=== PATIENT | female | born 1945 | race Caucasian/White ===

== ENCOUNTER 2020-03-12 16:08 | Outpatient (CLI) | payer MEDICARE, SELFPAY ==
--- NOTE | ~2020-03-12 | MM_ITS ---
EXAMINATION: MM screening [facility] BI w vladimir HISTORY: Screening mammogram TECHNIQUE: Craniocaudal and mediolateral oblique 3-D tomosynthesis images were obtained and synthetic 2-D images were generated. CAD analysis was submitted and interpreted. COMPARISON: 02/26/2018, 02/22/2017, 02/09/2016 BREAST PARENCHYMAL COMPOSITION: There are scattered areas of fibroglandular density. FINDINGS: There is no evidence of suspicious mass, calcification, or architectural distortion to sugg est malignancy in either breast. There has been no suspicious interval change. IMPRESSION: 1. No mammographic evidence of malignancy. 2. Recommend routine screening mammography in one year. BI-RADS Category 1: Negative Reviewed, dictated and finalized at location A.
== END 2020-03-12 16:09 | disposition home or self-care (01) ==
PROVIDERS: PCP Family Medicine Adolescent Medicine; Visit Provider Obstetrics & Gynecology
DX: Z12.31 Encounter for screening mammogram for malignant neoplasm of breast (principal)
CPT/HCPCS: 77063; 77067

== ENCOUNTER 2022-05-10 08:34 | Outpatient (CLI) | payer MEDICARE, SELFPAY ==
--- NOTE | ~2022-05-10 | MM_ITS ---
EXAMINATION: MM screening [facility] BI w vladimir HISTORY: Screening mammogram TECHNIQUE: Craniocaudal and mediolateral oblique 3-D tomosynthesis images were obtained and synthetic 2-D images were generated. CAD analysis was submitted and interpreted. COMPARISON: 03/30/2020, 02/26/2018, 02/22/2017 BREAST PARENCHYMAL COMPOSITION: There are scattered areas of fibroglandular density. FINDINGS: There is no suspicious mass, calcification, or architectural distortion to suggest malignan cy in either breast. There has been no suspicious interval change. IMPRESSION: 1. No mammographic evidence of malignancy. 2. Recommend routine screening mammography in one year. BI-RADS Category 1: Negative Reviewed, dictated and finalized at location A.
== END 2022-05-10 08:35 | disposition home or self-care (01) ==
PROVIDERS: PCP Family Medicine Adolescent Medicine; Visit Provider Obstetrics & Gynecology
DX: Z12.31 Encounter for screening mammogram for malignant neoplasm of breast (principal)
CPT/HCPCS: 77063; 77067

== ENCOUNTER 2024-03-29 13:30 | Emergency (ER) | payer MEDICARE, SELFPAY ==
[2024-03-29 13:38] VITALS: BP 128/57; PULSE 70; RESP 16; TEMP 36.6; O2SAT 100
[2024-03-29] MEDS: TETANUS,DIPHTHERIA,AC PERTUSSIS ADULT (0.5 ML) BOOSTRIX IM (14:39)
[2024-03-29] MEDS: LIDOCAINE HCL 1% LOCAL INJ 2 ML AMPUL 4 ML INFILTRATE (14:49)
--- NOTE | 2024-03-29 15:12 | ED.WOUNDLAC ---
HPI - Wound/Laceration General Chief Complaint: Wound/Laceration Stated Complaint: FINGER LACERATION Time Seen by Provider: 03/29/24 14:24 Source: patient and RN notes reviewed Mode of arrival: ambulatory Limitations: no limitations History of Present Illness HPI narrative: Patient presents today with a laceration to her left 2nd finger tip. She sustained a laceration approximately 1 hour prior to arrival on a laser beam cutter while sewing. She is not up-to-date on her tetanus vaccine. She does not take a blood thinner or aspirin. Related Data Home Medications Medication Instructions Recorded Confirmed melatonin 3 mg tablet 3 mg PO QHS 01/10/22 03/29/24 calcium carbonate 600 mg-vitamin 600 cap PO BID 07/26/22 03/29/24 D3 12.5 mcg (500 unit) capsule (Calcium 600 with Vitamin D3) Allergies Allergy/AdvReac Type Severity Reaction Status Date / Time amoxicillin Allergy Unknown HIVES Verified 03/29/24 14:14 clavulanic acid Allergy Unknown HIVES Verified 03/29/24 14:14 Review of Systems Review of Systems: CONSTITUTIONAL: Denies body aches, fever, chills, or sweats. EYES: Denies visual changes, redness, or discharge. ENT: Denies rhinorrhea, congestion, sore throat, or otalgia. CARDIOVASCULAR: Denies chest pain, palpitations, or edema. RESPIRATORY: Denies cough or dyspnea. GASTROINTESTINAL: Denies abdominal pain, nausea, vomiting, or diarrhea. GENITOURINARY: Denies dysuria or hematuria. SKIN: Denies rash, itching. + finger laceration MUSCULOSKELETAL: Denies back pain, joint pain, or myalgia. NEUROLOGIC: Denies headache, numbness, tingling, or weakness. PSYCH: Denies depression or anxiety. [facility] Past Medical History Medical History Arthritis Degenerative arthritis of knee, bilateral Headache Surgical History Surgical History History of tubal ligation Hx of cholecystectomy Family History Family History Father Hypertension Acute myocardial infarction Heart disease Mother Hypertension Heart disease Sibling Parkinsons disease Hypertension Grandparent Alcoholism Hypertension Heart disease Social History Social History Smoking status: Never smoker Second hand tobacco smoke exposure: No Alcohol intake: current Alcohol use details: 2 glasses of wine monthly Substance use: never Substance use type: does not use Lack of Transportation: No Lack of Food: Never True Current Housing: I Have Housing Concerned About Future Housing: No Difficulty Paying Gas/Electric Bills: No Difficulty Paying for Meds: No Currently Unemployed: No Education: High School Diploma/GED Difficulty w/ Childcare or Family Care: No Living arrangements: with family Occupation/Education: retired Gender identity (if verbalized by the patient): Female Sexual Orientation (if Verbalized by the Patient): Straight or Heterosexual Spiritual care concerns: No Agree to blood products: Yes Comments At time of signature, I have reviewed and agree with nursing past medical, surgical, social and family history unless otherwise noted. Please see nursing chart for further information. There is no relevant family history pertinent to the presenting complaint Exam Narrative: GENERAL: Well-appearing, well-nourished, and in no acute distress. HEAD: Normocephalic, atraumatic. EYES: EOMI. No redness or drainage. Conjunctivae normal. ENT: Mucous membranes pink and moist. NECK: Normal AROM. CHEST: No respiratory distress. EXTREMITIES: 1cm partial thickness flap laceration to the fingertip. The laceration extends to the lateral fingernail including a sliver, but into the nailbed at full thickness. This additional portion of laceration measures approximate
== END 2024-03-29 15:18 | disposition home or self-care (01) ==
PROVIDERS: Emergency Provider Nurse Practitioner; PCP Family Medicine Adolescent Medicine
DX: S61.311A Laceration without foreign body of left index finger with damage to nail, initial encounter (principal); W27.8XXA Contact with other nonpowered hand tool, initial encounter; Z23 Encounter for immunization; M17.0 Bilateral primary osteoarthritis of knee
CPT/HCPCS: 12001; 90471; 90715; 99213; G0463

== ENCOUNTER 2024-04-12 12:41 | Outpatient (CLI) | payer MEDICARE, SELFPAY ==
--- NOTE | ~2024-04-12 | US_ITS ---
EXAMINATION: US thyroid DATE: 04/12/2024 13:29 INDICATION: Thyroid nodule. TECHNIQUE: Multiple ultrasound images of the thyroid were obtained. COMPARISON: None. FINDINGS: The right thyroid lobe measures 4.8 x 1.7 x 1.7 cm. The left thyroid lobe measures 4.4 x 1.3 x 1.6 c m. In the right thyroid lobe, there is an 8 mm mixed cystic and solid, hypoechoic, solid nodule with ill-defined smooth margin without echogenic foci (TI-RADS TR3). In the right thyroid lobe, there is a 6 mm mixed solid and cystic, hypoechoic, wider than tall nodule with smooth margin without echogeni c foci (TR3). In the left thyroid lobe, there is a 7 mm solid, hypoechoic, solid nodule with smooth m argin without echogenic foci (TR4). IMPRESSION: 1. Small thyroid nodules, likely not clinically significant. No follow-up is needed. Reviewed, dictated and finalized at location A. IMPRESSION: 1. Small thyroid nodules, likely not clinically significant. No follow-up is ne eded.
== END 2024-04-12 12:42 ==
LOC: MICIMG 12:42
PROVIDERS: PCP Family Medicine Adolescent Medicine; Visit Provider Family Medicine Adolescent Medicine
DX: E04.2 Nontoxic multinodular goiter (principal)
CPT/HCPCS: 76536

== ENCOUNTER 2024-10-17 08:43 | Outpatient (CLI) | payer MEDICARE, SELFPAY ==
--- NOTE | ~2024-10-17 | MM_ITS ---
EXAMINATION: MM screening [facility] BI w vladimir HISTORY: Screening TECHNIQUE: Craniocaudal and mediolateral oblique 3-D tomosynthesis images were obtained and synthetic 2-D images were generated. CAD analysis was submitted and interpreted. COMPARISON: Comparison to multiple prior studies sequentially, with oldest reviewed study dated 12/25. BREAST PARENCHYMAL COMPOSITION: Not dense: There are scattered areas of fibroglandular density. FINDINGS: There is no evidence of suspicious mass, calcification, or architectural distortion to sugg est malignancy in either breast. There has been no suspicious interval change. IMPRESSION: 1. No mammographic evidence of malignancy. 2. Recommend routine screening mammography in one year. BI-RADS Category 1: Negative Reviewed, dictated and finalized at location B. OVOLTAIC TESTING TECHNICIAN
--- OUTSIDE RECORDS SUMMARY | 2024-10-17 08:51 | XMS_ITS | Referral Summary ---
Author Organization [facility] [address] Address [address] [place] [phone] Care Team Providers Care Electrical Project Manager Name Role Phone Skip Cross MD Primary Care Prov ider Nano Granda Unavailable [phone] Encounters Date Type Department Care Team Description 09/05/2024 Documentation [facility] Group Orthopedics and Sports Medicine [address] [place] [address] [place] [phone] Sonia Xiao MA 08/29/2024 2:55 PM JUDICIAL REGISTRAR Ancillary Procedure [facility] Medical [facility] Imaging at [address] [phone] 08/29/2024 3:00 PM JUDICIAL REGISTRAR Office Visit [facility] Medical [facility] Orthopedic and Sports Medicine [address] [place] [phone] Nano Granda PA Aftercare following right knee joint replacement surgery (Primary Dx) 07/23/2024 9:00 AM JUDICIAL REGISTRAR Telemedicine [facility] Orthopedic and Sports Medicine [address] [place] [phone] Nano Granda PA Aftercare following right knee joint replacement surgery (Primary Dx) from Last 3 Months Allergies Active Allergy Reactions Criticality Noted Date Comments Amoxicillin Shortness of breath High 11/28/2023 Clavulanic Acid Shortness of breath High 11/28/2023 Medications propranolol LA (INDERAL LA) 80 mg 24 hr capsule Take 1 capsule (80 mg total) by mouth daily 3 Active melatonin 5 mg tablet Take 1 tablet (5 mg total) by mouth nightly as needed Active calcium carbonate-vitam in D3 (CALTRATE 600 + D) 1500 mg (600 mg elemental) -400 units per tablet Take 1 tablet by mouth daily Active ibuprofen (ADVIL ORAL) Take by mouth as needed Active ascorbic acid (ascorbic acid with edwina hips) 500 mg tablet,chewable Take 2 tablet/chew tab (1,000 mg total) by mouth daily For 30 days then resume 1 tablet per day dosing 4 Active cholecalciferol (VITAMIN D-3) 2000 unit capsule Take 1 capsule (2,000 Units total) by mouth daily 30 capsule 4 Active HYDROcodone-radha taminophen (NORCO) 5-325 mg per tabletIndicatio ns:Pain Take 1-2 tablets by mouth every 4 (four) hours as needed for pain 63 tablet 4 Active ondansetron (ZOFRAN) 4 mg tabletIndicatio ns:Prevention of Post-Operative Nausea and Vomiting Take 1 tablet (4 mg total) by mouth every 6 (six) hours as needed for nausea or vomiting 30 tablet 1 4 Active senna-docusate (PERICOLACE) 8.6-50 mg 1-2 times daily as needed for constipation 60 tablet 1 4 Active aspirin 81 mg enteric coated tabletIndicatio ns:prevention of thrombosis Take 1 tablet (81 mg total) by mouth 2 (two) times a day for 28 days 56 tablet 4 Active Active Problems Problem Noted Date Diagnosed Date Primary osteoarthritis of right knee 06/10/2024 Social History Tobacco Use Types Packs/Day Years Used Date Smoking Tobacco: Never Smokeless Tobacco: Never Tobacco Cessation:Counseling Given: Not Answered AUDIT-C Answer Date Recorded Q1: How often do you have a drink containing alc ohol? 2-4 times a month 07/09/2024 Q2: How many drinks containi ng alcohol do you have on a typical day when you are drinking? 1 or 2 07/09/2024 Q3: How often do you have si x or more drinks on one occasion? Never 07/09/2024 Personal Safety Answer Date Recorded Have you ever been in or are you currently in a harmful physical or emotional relationship or is someone making you feel afraid or unsafe? Denies 07/09/2024 Comments Unknown Sex and Gender Information Value Date Recorded Sex Assigned at Not on file Legal Sex Female 8:12 PM JUDICIAL REGISTRAR Gender Identity Female 06/25/2024 12:51 PM CDT Sexual Orientation Straight 06/25/2024 12 :51 PM CDT Last Filed Vital Signs Vital Sign Reading Time Taken Comments Blood Pressure 161/80 08/29/2024 3:01 PM JUDICIAL REGISTRAR Pulse 61 08/29/2024 3:01 PM JUDICIAL REGISTRAR Temperature 36.9 C (98.5 F) 07/09/2024 2:58 PM CDT Respiratory Rate 16 07/09/2024 2:58 PM CDT Oxygen Saturation 95% 07/09/2024 2:58 PM CDT Inhaled Oxygen Concentration - - Weight 62.6 kg (138 lb) 08/29/2024 3:01 PM JUDICIAL REGISTRAR Height 154.9 cm (5' 1 ) 08/29/2024 3:01 PM JUDICIAL REGISTRAR Body Mass Index 26.07 08/29/2024 3:01 PM JUDICIAL REGISTRAR Plan of Treatment Not on file Medical Devices Implanted Type Area Special Procedures Nurse Device Identifier Shelf Expiration Date Model / Serial / Lot Depuy [employer] Attune Fb Tib Base Sz 3 Por [id number] - [id number] Implanted:Qty: 1 on 07/09/2024 by Nik Russo MD at [facility] Right: Knee [employer] [id number] 04/10/2034 [id number] / / [id number] [employer] Attune Cruciate Retain Cementless Knee Right 3 Component Femoral [id number] - [id number] Implanted:Qty: 1 on 07/09/2024 by Nik Russo MD at [facility] Right: Knee [employer] [id number] 03/10/2033 [id number] / / [id number] Dep[employer] Insert Tibial Knee Fixed Rm Posterior Stabilized Attune 6mm Size 3 Polyethylene [id number] - [id number] Implanted:Qty: 1 on 07/09/2024 by Nik Russo MD at [facility] Right: Knee [employer] [id number] 02/08/2031 [id number] / / [id number] Procedures Procedure Name Priority Date/Time Associated Diagnosis Comments XR KNEE RIGHT 1 OR 2 VIEWS Schedule Routine, Read Routine (OP Routine) 08/29/2024 2:53 PM JUDICIAL REGISTRAR Aftercare following right knee joint replacement surgery from Last 3 Months Results * XR Knee Right 1 or 2 Views (08/29/2024 2:53 PM JUDICIAL REGISTRAR) Anatomical Region Laterality Modality Lower Extremities, Knee Right Digital Radiography Narrative 08/29/2024 9:29 PM JUDICIAL REGISTRAR X-rays of the right knee are reviewed and interpreted and demonstrate no acute fractures subluxations or osseous changes. Status post TKA changes noted with press fit implants in acceptable position. Nano PASCUAL IMG XR PROCEDURES Final Result from Last 3 Months Insurance MEDICARE [employer] Care Teams Electrical Project Manager Relationship Specialty Start Date End Date Skip Cross MD [address] [place] [address] PCP - General Family Medicine 11/09/23 Nano Granda PA [address] [place] [address] [address] [place] [id number] Physician Welding Teacher Orthopedic Surgery 07/09/24
--- OUTSIDE RECORDS SUMMARY | 2024-10-17 08:51 | XMS_ITS | Clinical Summary ---
Author Organization [facility] [address] Address [address] [place] [address] Care Team Providers Care Apprentice Technician Name Role Phone Skip Cross MD Primary Care Prov ider Nano Granda PA Unavailable [phone] Allergies Active Allergy Reactions Criticality Noted Date [...] Date Primary osteoarthritis of right knee 06/10/2024 Encounters Date Type Department Care Team Description 09/05/2024 Documentation [facility] Orthopedics and Sports Medicine [address] [place] [phone] Sonia Xiao MA 08/29/2024 3:00 PM PRODUCT PROMOTER RETAIL PET Office Visit [facility] Orthopedic and Sports Medicine [address] [place] [phone] Nano Granda PA Aftercare following right knee joint replacement surgery (Primary Dx) 08/29/2024 2:55 PM PRODUCT PROMOTER RETAIL PET Ancillary Procedure [facility] Imaging at [address] [phone] 07/23/2024 9:00 AM PRODUCT PROMOTER RETAIL PET Telemedicine [facility] Orthopedic and Sports Medicine [address] [place] [phone] Nano Granda PA Aftercare following right knee joint replacement surgery (Primary Dx) from Last 3 Months Surgical History Surgery Date Site/Laterality Comments TUBAL LIGATION 09/11/1984 - 09/10/1985 CHOLECYSTECTOMY 09/11/2008 - 09/10/2009 EYE SURGERY Bilateral Cataracts Medical History Medical History Date Comments Osteoarthritis Migraines Social History Tobacco Use Types Packs/Day Years [...] on file Legal Sex Female 8:12 PM PRODUCT PROMOTER RETAIL PET Gender Identity Female 06/25/2024 12:51 PM CDT Sexual Orientation Straight 06/25/2024 12 :51 PM CDT Obstetrics History Last Filed Vital Signs Vital Sign Reading Time Taken Comments Blood Pressure 161/80 08/29/2024 3:01 PM PRODUCT PROMOTER RETAIL PET Pulse 61 08/29/2024 3:01 PM PRODUCT PROMOTER RETAIL PET Temperature 36.9 C (98.5 F) 07/09/2024 2:58 PM CDT Respiratory Rate 16 07/09/2024 2:58 PM CDT Oxygen Saturation 95% 07/09/2024 2:58 PM CDT Inhaled Oxygen Concentration - - Weight 62.6 kg (138 lb) 08/29/2024 3:01 PM PRODUCT PROMOTER RETAIL PET Height 154.9 cm (5' 1 ) 08/29/2024 3:01 PM PRODUCT PROMOTER RETAIL PET Body Mass Index 26.07 08/29/2024 3:01 PM PRODUCT PROMOTER RETAIL PET Plan of Treatment Health Maintenance Due Date Last Done Comments Depression Screening 1945 Hepatitis C Screening 1945 Osteoporosis Screening-Bone Density Scan 1945 Hepatitis B Screening 1965 Well Visit 65+ 2012 Covid-19 Vaccine (5 - 2023-2 5 season) 2024 06/10/2022, 08/10/2021, 11/30/2020, Additional history exists Fall Risk Assessment 06/10/2025 06/10/2024 DTaP/Tdap/Td Vaccine (2 - Td or Tdap) 09/26/2026 09/26/2016 Pneumococcal vaccine 65+ Completed 05/22/2018, 03/2017 Zoster Vaccine Completed 08/30/2019, 06/06/2019 Influenza Vaccine Completed 06/14/2024, , 06/10/2022, Additional history exists Medical Devices Implanted Type Area Transplant Coordinator Device Identifier Shelf Expiration Date Model / Serial / Lot Depuy [employer] Attune Fb Tib Base Sz 3 Por [id number] - [id number] Implanted:Qty: 1 on 07/09/2024 by Nik Russo MD at [facility] Right: Knee [employer] [id number] 04/10/2034 [id number] / / [id number] [employer] Attune Cruciate Retain Cementless Knee Right 3 Component Femoral [id number] - [id number] Implanted:Qty: 1 on 07/09/2024 by Nik Russo MD at [facility] Right: Knee [employer] [id number] 03/10/2033 [id number] / / [id number] [employer] Insert Tibial Knee Fixed Rm Posterior Stabilized Attune 6mm Size 3 Polyethylene [id number] - [id number] Implanted:Qty: 1 on 07/09/2024 by Nik Russo MD at [facility] Right: Knee [employer] [id number] 02/08/2031 [id number] / / [id number] Procedures Procedure Name Priority Date/Time Associated Diagnosis Comments XR KNEE RIGHT 1 OR 2 VIEWS Schedule Routine, Read Routine (OP Routine) 08/29/2024 2:53 PM PRODUCT PROMOTER RETAIL PET Aftercare following right knee joint replacement surgery from Last 3 Months Results * XR Knee Right 1 or 2 Views (08/29/2024 2:53 PM PRODUCT PROMOTER RETAIL PET) Anatomical Region Laterality Modality Lower Extremities, Knee Right Digital Radiography Narrative 08/29/2024 9:29 PM PRODUCT PROMOTER RETAIL PET X-rays of the right knee are reviewed and interpreted and demonstrate no acute fractures subluxations or osseous changes. Status post TKA changes noted with press fit implants in acceptable position. Nano PASCUAL IMG XR PROCEDURES Final Result from Last 3 Months Insurance MEDICARE [employer] Care Teams Apprentice Technician Relationship Specialty Start Date End Date Skip Cross MD [address] [place] [address] PCP - General Family Medicine 11/09/23 Nano Granda PA [address] [place] [address] [place] [address] Physician Stenciling Machine Tender Orthopedic Surgery 07/09/24
--- OUTSIDE RECORDS SUMMARY | 2024-10-17 08:51 | XMS_ITS | Clinical Summary ---
Author Organization [facility] Address [address] [place] [address] Care Team Providers Care Monogram Machine Operator Name Role Phone Skip Cross MD Primary Care Provider + Source Comments [facility] [employer],non-owned Affiliates and Associated Physician Practices is amultiple site organization consisting of ambulatory clinics and hospital sitesin [place], [place], [place] and [place]. This disclosure is being madepursuant to the Care Everywhere program and may not contain all information available regarding this patient. Last updated 18.[facility] Immunizations Name Administration Dates Next Due INFLUENZA VACCINE, HIGH-DOSE , QUADR. (FLUZONE HIGH-DOSE QUADRIVALENT; 65Y+), 0.7 ML (HD-IIV4) 07/07/2016 Social History Tobacco Use Types Packs/Day Years Used Date Smoking Tobacco: Never Assessed Sex and Gender Information Value Date Recorded Sex Assigned at Not on file Gender Identity Not on file Sexual Orientation Not on file Plan of Treatment Health Maintenance Due Date Last Done Comments BONE DENSITY TESTING 1945 MEDICARE AWV 12 MONTHS 1945 HEPATITIS C SCREENING 09/13/1965 DTAP/TDAP/TD VACCINES (1 - Tdap) 1966 PNEUMOCOCCAL VACCINE 50+ (1 of 1 - PCV) 1997 ZOSTER VACCINE (1 of 2) 1997 Respiratory Syncytial Virus (RSV) Vaccine Pt: or over 60 yrs (1 - 1-dose 75+ series) 2022 COVID-19 VACCINE ( - 2023-2 5 season) 2024 INFLUENZA VACCINE (#1) 2024 07/07/2016 DEPRESSION SCREENING 09/11/2024 HEPATITIS B VACCINE Aged Out No longe r eligible based on patient's age to complete this topic HIB VACCINE Aged Out No longer eligi ble based on patient's age to complete this topic HPV VACCINE Aged Out No longer eligi ble based on patient's age to complete this topic MENINGOCOCCAL (Group B) VACCINE Aged Out No longer eligible based on patient's age to complete this topic MENINGOCOCCAL VACCINE Aged Out No felix bonita eligible based on patient's age to complete this topic Care Teams Monogram Machine Operator Relationship Specialty Start Date End Date Skip Cross MD [address] [address] PCP - General Family Medicine 07/07/16
--- OUTSIDE RECORDS SUMMARY | 2024-10-17 08:51 | XMS_ITS | Referral Summary ---
Author Organization [facility] Address [address] [place] [address] Care Team Providers Care Home Health Rn Name Role Phone Skip Cross MD Primary Care Provider + Source Comments [facility] [email or web address],non-owned Affiliates and Associated Physician Practices is amultiple site organization consisting of ambulatory clinics and hospital sitesin [place], [place], [place] and [place]. This disclosure is being madepursuant to the Care Everywhere program and may not contain all information available regarding this patient. Last updated 18.[facility] [email or web address] Immunizations Name Administration Dates Next Due INFLUENZA VACCINE, HIGH-DOSE , QUADR. (FLUZONE HIGH-DOSE QUADRIVALENT; 65Y+), 0.7 ML (HD-IIV4) 07/07/2016 Social History Tobacco Use Types Packs/Day Years Used Date Smoking Tobacco: Never Assessed Sex and Gender Information Value Date Recorded Sex Assigned at Not on file Gender Identity Not on file Sexual Orientation Not on file Plan of Treatment Not on file Care Teams Home Health Rn Relationship Specialty Start Date End Date Skip Cross MD [address] [facility] [address] [place] [address] PCP - General Family Medicine 07/07/16
--- OUTSIDE RECORDS SUMMARY | 2024-10-17 08:51 | XMS_ITS | Patient Health Summary ---
Author Organization [facility] Address [address] [place] [address] Care Team Providers Care Safety And Security Manager Name Role Phone Skip Cross MD Primary Care Provider + Note from [facility],non-owned Affiliates and Associated Physician Practices is amultiple site organization consisting of ambulatory clinics and hospital sitesin [place], [place], [place] and [place]. This disclosure is being madepursuant to the Care Everywhere program and may not contain all information available regarding this patient. Last updated 18.[facility] Immunizations * INFLUENZA VACCINE, HIGH-DOSE, QUADR. (FLUZONE HIGH-DOSE QUADRIVALENT; 65Y+), 0.7 ML (HD-IIV4)(Given 07/07/2016) Social History Tobacco Use Types Packs/Day Years Used Date Smoking Tobacco: Never Assessed Sex and Gender Information Value Date Recorded Sex Assigned at Not on file Gender Identity Not on file Sexual Orientation Not on file Care Teams Safety And Security Manager Relationship Specialty Start Date End Date Skip Cross MD [address] [facility] [address] [place] [address] PCP - General Family Medicine 07/07/16
== END 2024-10-17 08:44 | disposition home or self-care (01) ==
LOC: ANHIMG 08:45
PROVIDERS: PCP Family Medicine Adolescent Medicine; Visit Provider Family Medicine Adolescent Medicine
DX: Z12.31 Encounter for screening mammogram for malignant neoplasm of breast (principal)
CPT/HCPCS: 77063; 77067

== ENCOUNTER 2024-12-03 09:19 | Outpatient (RCR) | payer SELFPAY | END 2024-12-03 23:59 | disposition home or self-care (01) | LOC: ANHAUDIO 09:19 | PROVIDERS: PCP Family Medicine Adolescent Medicine; Visit Provider Family Medicine Adolescent Medicine | DX: Z46.1 Encounter for fitting and adjustment of hearing aid (principal) | CPT/HCPCS: V5014 ==

== ENCOUNTER 2025-08-26 12:50 | Outpatient (CLI) | payer MEDICARE, SELFPAY ==
--- OUTSIDE RECORDS SUMMARY | 2025-08-26 14:49 | XMS_ITS | Clinical Summary ---
Author Organization [facility] [address] Address [facility] [place] [address] Care Team Providers Care Fun House Operator Name Role Phone Skip Cross MD Primary Care Prov ider Nano Granda PA Unavailable [phone] Allergies Active Allergy Reactions Criticality Noted Date Comments Amoxicillin Shortness of breath High 11/28/2023 Clavulanic Acid Shortness of breath High 11/28/2023 Medications propranolol LA (INDERAL LA) 80 mg 24 hr capsule Take 1 capsule (80 mg total) by mouth daily 09/08/2023 Active melatonin 5 mg tablet Take 1 [...] then resume 1 tablet per day dosing 07/09/2024 Active aspirin 81 mg enteric coated tabletIndicatio ns:prevention of thrombosis Take 1 tablet (81 mg total) by mouth 2 (two) times a day for 28 days 56 tablet 07/09/2024 Active Active Problems Problem Noted Date Diagnosed Date Primary osteoarthritis of right knee 06/10/2024 Encounters Date Type Department Care Team Description 07/08/2025 10:30 AM CDT Office Visit [facility] Medical [facility] Orthopedic [facility] Sports Medicine [address] [place] [phone] Nano Granda PA Weakness of both lower extremities (Primary Dx); Aftercare following right knee joint replacement surgery; Chronic pain of right knee 07/08/2025 10:20 AM CDT Ancillary Procedure [facility] at [address] [phone] 06/25/2025 Telephone [facility] Orthopedics and Sports Medicine [address] [facility] [address] [place] [phone] Nano Granda PA from Last 3 Months Surgical History Surgery [...] on file Legal Sex Female 8:12 PM PATIENT INFORMATION COORDINATOR Gender Identity Female 06/25/2024 12:51 PM CDT Sexual Orientation Straight 06/25/2024 12 :51 PM CDT Last Filed Vital Signs Vital Sign Reading Time Taken Comments Blood Pressure 136/59 07/08/2025 10:37 AM CDT Pulse 78 07/08/2025 10:37 AM CDT Temperature 36.9 C (98.5 F) 07/09/2024 2:58 PM CDT Respiratory Rate 16 07/09/2024 2:58 PM CDT Oxygen Saturation 95% 07/09/2024 2:58 PM CDT Inhaled Oxygen Concentration - - Weight 64.4 kg (142 lb) 07/08/2025 10:37 AM CDT Height 154.9 cm (5' 1) 07/08/2025 10:37 AM CDT Body Mass Index 26.83 07/08/2025 10:37 AM CDT Plan of Treatment Health Maintenance Due Date Last Done Comments Depression Screening 1945 Hepatitis C Screening 1945 Osteoporosis Screening-Bone Density Scan 1945 Hepatitis B Screening 1965 Well Visit 65+ 2012 Covid-19 Vaccine (2024-2 6 season) 2025 06/10/2022, 08/10/2021, 11/30/2020, Additional history exists Influenza Vaccine (#1) 2025 , 06/21/2023, 06/10/2022, Additional history exists Fall Risk Assessment 06/10/2025 06/10/2024 DTaP/Tdap/Td Vaccine (3 - Td or Tdap) 03/29/2034 03/29/2024, 09/26/2016, 03/23/2015 Pneumococcal vaccine 65+ Completed 05/22/2018, 03/2017 Zoster Vaccine Completed 08/30/2019, 06/06/2019 Medical Devices Implanted Type Area Marriage Performer Device Identifier Shelf Expiration Date Model / Serial / Lot [employer] Attune Fb Tib Base Sz 3 Por [id number] - [id number] Implanted:Qty: 1 on 07/09/2024 by Nik Russo MD at [facility] Right: Knee [employer] [id number] 04/10/2034 [id number] / / [id number] [employer] Attune Cruciate Retain Cementless Knee Right 3 Component Femoral [id number] - [id number] Implanted:Qty: 1 on 07/09/2024 by Nik Russo MD at [facility] Right: Knee [employer] [id number] 03/10/2033 [id number] / / [id number] [employer] Insert Tibial Knee Fixed Rm Posterior Stabilized Attune 6mm Size 3 Polyethylene [id number] - [id number] Implanted:Qty: 1 on 07/09/2024 by Nik Russo MD at [facility] Right: Knee [employer] [id number] 02/08/2031 [id number] / / [id number] Procedures Procedure Name Priority Date/Time Associated Diagnosis Comments XR KNEE RIGHT 3 VIEWS Schedule Routine, Read Routine (OP Routine) 07/08/2025 10:28 AM CDT Chronic pain of right knee from Last 3 Months Results * XR Knee Right 3 View (07/08/2025 10:28 AM CDT) Anatomical Region Laterality Modality Lower Extremities, Knee Right Digital Radiography Narrative 07/08/2025 1:39 PM CDT X-rays of the right knee are reviewed and interpreted and demonstrate no acute fractures subluxations or osseous changes. Status post total knee arthroplasty changes noted with implants in acceptable position. Nano PASCUAL IMG XR PROCEDURES Final Result from Last 3 Months Insurance MEDICARE [place] [employer] Care Teams Fun House Operator Relationship Specialty Start Date End Date Skip Cross MD PCP - General Family Medicine 11/09/23 Nano Granda PA [address] [facility] [address] [place] [address] [place] [id number] Physician Board Mill Supervisor Orthopedic Surgery 07/09/24
--- OUTSIDE RECORDS SUMMARY | 2025-08-26 14:49 | XMS_ITS | Clinical Summary ---
Author Organization [facility] Address [address] [place] [address] Care Team Providers Care Stunner Animal Name Role Phone Skip Cross MD Primary Care Provider + Source Comments [facility],non-owned Affiliates and Associated Physician Practices is amultiple site organization consisting of ambulatory clinics and hospital sitesin [place] and [place]. This disclosure is being madepursuant to the Care Everywhere program and may not contain all information available regarding this patient. Last updated 18.[facility] Immunizations Immunization Administration Dates Next Due INFLUENZA VACCINE, HIGH-DOSE , QUADR. (FLUZONE HIGH-DOSE QUADRIVALENT; 65Y+), 0.7 ML ([id number]-[id number]) 07/07/2016 Social History Tobacco Use Types Packs/Day Years Used Date Smoking Tobacco: Never Assessed Comments Unknown Sex and Gender Information Value Date Recorded Sex Assigned at Not on file Legal Sex Female 11:07 AM CDT Gender Identity Not on file Sexual Orientation Not on file Plan of Treatment Health Maintenance Due Date Last Done Comments BONE DENSITY TESTING 1945 HEPATITIS C SCREENING 09/13/1965 DTAP/TDAP/TD VACCINES (1 - Tdap) 1966 PNEUMOCOCCAL VACCINE 50+ (1 of 1 - PCV) 1997 ZOSTER VACCINE (1 of 2) 1997 Respiratory Syncytial Virus (RSV) Vaccine Pt: or over 60 yrs (1 - 1-dose 75+ series) 2022 DEPRESSION SCREENING 09/11/2024 COVID-19 VACCINE (1 - 2024-2 6 season) 2025 INFLUENZA VACCINE (#1) 2025 07/07/2016 HEPATITIS B VACCINE Aged Out No longe r eligible based on patient's age to complete this topic HIB VACCINE Aged Out No longer eligi ble based on patient's age to complete this topic HPV VACCINE Aged Out No longer eligi ble based on patient's age to complete this topic MENINGOCOCCAL (Group B) VACC INE SHARED DECISION-MAKING Aged Out No longer eligibl e based on patient's age to complete this topic MENINGOCOCCAL GROUPS A/C/Y/W VACCINE Aged Out No longer eligible b ased on patient's age to complete this topic Insurance [facility] MEDICARE MEDICARE Care Teams Stunner Animal Relationship Specialty Start Date End Date Skip Cross MD [phone] [id number] PCP - General Family Medicine 07/07/16
== END 2025-08-26 12:51 | disposition home or self-care (01) ==
LOC: ANHAUDIO 12:51
PROVIDERS: PCP Family Medicine Adolescent Medicine; Visit Provider Family Medicine Adolescent Medicine
DX: H90.3 Sensorineural hearing loss, bilateral (principal)
CPT/HCPCS: 92557; 92567; 99199